=== PATIENT | male | born 1950 | race Native Hawaiian/Other Pacific Islander ===

== ENCOUNTER 2016-12-06 12:07 | Outpatient (CLI) | payer OTHER, BC | END 2016-12-06 20:03 | disposition home or self-care (01) | LOC: LABW 12:07 | DX: Z79.01 Long term (current) use of anticoagulants (principal); Z51.81 Encounter for therapeutic drug level monitoring | CPT/HCPCS: 36415; 85610 ==

== ENCOUNTER 2017-01-16 15:12 | Outpatient (CLI) | payer OTHER, BC | END 2017-01-16 21:09 | disposition home or self-care (01) | LOC: LABW 15:12 | DX: Z79.01 Long term (current) use of anticoagulants (principal) | CPT/HCPCS: 36415; 85610 ==

== ENCOUNTER 2017-06-06 11:22 | Outpatient (CLI) | payer OTHER, BC | END 2017-06-06 20:06 | disposition home or self-care (01) | LOC: LABW 11:22 | DX: Z79.01 Long term (current) use of anticoagulants (principal); Z51.81 Encounter for therapeutic drug level monitoring | CPT/HCPCS: 36415; 85610 ==

== ENCOUNTER 2017-11-18 09:50 | Outpatient (CLI) | payer OTHER, BC ==
[2017-11-18 10:43] LABS: PLATELET COUNT 129 K/uL (142-355)
[2017-11-18 11:05] LABS: POTASSIUM 3.8 mmol/L (3.6-5.2)
== END 2017-11-18 19:04 | disposition home or self-care (01) ==
LOC: US 09:50
PROVIDERS: Internal Medicine
DX: M79.89 Other specified soft tissue disorders (principal); I50.9 Heart failure, unspecified; D68.8 Other specified coagulation defects
CPT/HCPCS: 36415; 80053; 80061; 81000; 83880; 84443; 85027; 85610